=== PATIENT | male | born 1995 | race Caucasian/White ===

== ENCOUNTER 2017-07-06 22:08 | Emergency (ER) | payer OTHER ==
[~2017-07-06] VITALS: Ht 177.8 cm; Wt 68.0 kg
[2017-07-07] MEDS ORDERED: ONDANSETRON 4MG ODT PO ONE (02:15)
[2017-07-07] MEDS ORDERED: ACETAMINOPHEN 500MG TABLET PO ONE (02:15)
[2017-07-07] MEDS ORDERED: KETOROLAC 60MG/2ML VIAL IM ONE (04:30)
[2017-07-07 04:45] VITALS: BP 102/61
== END 2017-07-07 04:49 | disposition home or self-care (01) ==
LOC: ER 22:09
DX: F07.81 Postconcussional syndrome (principal); W50.0XXA Accidental hit or strike by another person, initial encounter; Y93.66 Activity, soccer; Y92.89 Other specified places as the place of occurrence of the external cause; Y99.8 Other external cause status
CPT/HCPCS: 70450; 96372; 99284; J1885; Q0162; Z7610